=== PATIENT | male | born 1970 | race Caucasian/White ===

== ENCOUNTER 2016-09-26 18:19 | Emergency (ER) | payer BC ==
[2016-09-26] MEDS ORDERED: ONDANSETRON HCL 4 MG/2 ML VIAL ONE (19:01)
[2016-09-26 19:02] LABS: BASOPHILS 0.3 % (0.0-2.0); HEMATOCRIT 43.8 % (42.0-54.0); HEMOGLOBIN 15.6 g/dL (14.0-18.0); LYMPHOCYTES# 1.2 X 10^3uL (0.8-3.8); MEAN CELL VOLUME 87.5 fL (80.0-100.0); MEAN CORPUS. HGB CONCENTRATION 35.6 g/dL (32.0-36.0); MEAN CORPUSCULAR HEMOGLOBIN 31.1 pg (29.0-35.0); MEAN PLATELET VOLUME 8.6 fL (7.4-10.4); MONOCYTES 6.8 % (2.0-10.0); MONOCYTES# 0.6 X 10^3uL (0.2-1.0); NEUTROPHILS 78.9 % (54.0-75.0); NEUTROPHILS# 6.9 X 10^3uL (2.6-6.7); PLATELET COUNT 208 X 10^3uL (130-440); RED BLOOD COUNT 5.01 X 10^6uL (4.20-6.10); RED CELL DISTRIBUTION WIDTH 12.6 % (11.5-14.5); WHITE BLOOD COUNT 8.7 X 10^3uL (3.9-10.7)
[2016-09-26 19:12] LABS: A/G RATIO 1.1; ALBUMIN 4.1 g/dL (3.5-5.0); ALKALINE PHOSPHATASE 78 U/L (38-126); ALT 36 U/L (21-72); AST 27 U/L (17-59); BILIRUBIN, TOTAL 1.3 mg/dL (0.2-1.3); BLOOD UREA NITROGEN 18 mg/dL (9-20); CALCIUM 8.9 mg/dL (8.4-10.2); CHLORIDE 100 mmol/L (98-107); CREATININE 1.3 mg/dL (0.7-1.3); EST GLOMERULAR FILTRATION RATE > 60 mL/min; GLUCOSE 142 mg/dL (70-100); POTASSIUM 3.7 mmol/L (3.5-5.1); SODIUM 142 mmol/L (137-145); TOTAL PROTEIN 7.9 g/dL (6.3-8.2)
[2016-09-26] MEDS ORDERED: KETOROLAC TROMETHAMINE 30 MG/ML VIAL ONE (20:44)
[2016-09-26] MEDS ORDERED: FAMOTIDINE IN SALINE, ISO-OSM 50 ML IV ONE (20:44)
[2016-09-26] MEDS ORDERED: ONDANSETRON ODT PREPAC 4 MG TAB.RAPDIS PO ONE (21:19)
--- NOTE | 2016-09-26 21:28 | ER NURSING DOCUMENTATION ---
Nurse's Notes [facility] Name:Nita Carr Age:46 yrs Sex:Male :1970 Arrival Date:09/26/2016 Time:18:19 Bed4 Private MD: Diagnosis:Gastroenteritis vs. Food Poisoning;Dehydration Presentation: 09/26 18:21 Acuity: MOISES 3 tg 18:22 Presenting complaint: Patient states: Headache, Nausea and diarrhea since Tuesday. No tg blood or black tarriness. ABD pain in lower ABD. Transition of care: patient was not received from another setting of care. 18:22 Method Of Arrival: Private Vehicle tg Triage Assessment: 18:30 General: Appears uncomfortable, Behavior is cooperative. Pain: Complains of pain in tg Lower abd ("beltline"). Neuro: Level of Consciousness is awake, alert. Cardiovascular: Capillary refill < 3 seconds. Respiratory: Airway is patent Respiratory effort is even, unlabored. GI: Abdomen is obese, Stools are reported to be diarrhea. Reports diarrhea, nausea, Denies tolerance of food, tolerance of fluids, vomiting. Derm: Skin is pink, warm & dry. Historical: - Allergies: No known drug Allergies; - Home Meds: 1. Nexium Oral 2. Mobic oral 3. Zyrtec Oral 4. BP med - PMHx: HYPERTENSION; back pain; KIDNEY STONES; - PSHx: LITHOTRIPSY; ACL; - Tetanus: < 10 years. - Ebola Screening: : Patient negative for fever greater than or equal to 101.5 degrees Fahrenheit, and additional compatible Ebola Virus Disease symptoms. Patient denies exposure to infectious person. Patient denies travel to an Ebola-affected area in the 21 days before illness onset. No symptoms or risks identified at this time. . - Immunization history: Flu Vaccine >1 year. - Social history: Smoking status: Patient states was never smoker of tobacco. Screenin:48 Infectious Disease Risk Unable to Obtain. Abuse screen: Denies threats or abuse. Denies tg injuries from another. Nutritional screening: No deficits noted. Vital Signs: 18:26 BP 142 / 90; Pulse 120; Resp 22; Temp 99.2(O); Pulse Ox 92% ; Weight 122.92 kg (R); tg Height 5 ft. 10 in. (177.80 cm) (R); Pain 8/10; 20:48 BP 116 / 58; Pulse 96; Pulse Ox 96% on R/A; em1 21:26 BP 104 / 63; Pulse 92; Resp 18; Temp 99; Pulse Ox 96% on R/A; Pain 1/10; bw2 18:26 Body Mass Index 38.88 (122.92 kg, 177.80 cm) tg ED Course: 18:21 Patient arrived in ED. jt 18:21 Imtiaz Morrison RN is Primary Nurse. tg 18:21 Triage completed. tg 18:40 Ludwig Espinosa MD is Attending Physician. tl1 18:48 Arm band placed on Bed in low position Call Light in Reach Gowned HOB Elevated Side tg rails up x1. Family accompanied patient. 18:48 Valuables Remains with patient. tg 18:48 Inserted peripheral IV: 20 gauge in right antecubital area Missed attempts: 22 gauge X tg 1 in right hand. 18:49 Report given to JASBIR Ferrer. tg 19:04 Attending Physician role handed off by Ludwig Espinosa MD nj 19:04 Josh Barry MD is Attending Physician. sc Administered Medications: 18:54 Drug: NS 0.9% 1000 ml; Route: IV; Rate: bolus; Site: left femoral; tg 20:46 Follow up: Response: No adverse reaction; IV Status: Completed infusion bw2 18:54 Drug: Zofran 4 mg; Route: IVP; Infused Over: 2 mins; Site: right antecubital; tg 19:14 Follow up: Response: No adverse reaction; Nausea is decreased bw2 20:21 Drug: NS 0.9% 1000 ml; Route: IV; Rate: bolus; Site: right antecubital; bw2 21:04 Follow up: IV Status: Completed infusion bw2 20:34 Drug: Pepcid 20 mg; Route: IVPB; Site: right antecubital; bw2 20:46 Follow up: Response: No adverse reaction; IV Status: Completed infusion bw2 20:35 Drug: Toradol 30 mg; Route: IVP; Site: right antecubital; bw2 20:46 Follow up: Response: No adverse reaction bw2 21:09 Drug: Zofran 1 tablet; Route: PO; bw2 21:28 Follow up: Response: Pharmacy closed - take home med pack bw2 Outcome: 21:02 Discharge ordered by MD. sc 21:26 Discharged to home ambulatory. bw2 21:26 Condition: good 21:26 Discharge instructions given to patient, Instructed on discharge instructions, Demonstrated understanding of instructions, Prescriptions given X 1. 21:28 Patient left the ED. bw2 Signatures: Imtiaz Morrison, RN RN tg Josh Barry MD MD sc [facility], [facility] em1 FranciscaLudwig muniz MD MD tl1 Zaira Flores Carissa bw2
--- NOTE | 2016-09-26 21:28 | ER PHYSICIAN DOCUMENTATION ---
Physician Documentation [facility] Name:Nita Carr Age:46 yrs Sex:Male :1970 Arrival Date:09/26/2016 Time:18:19 Bed4 Private MD: Josh Arroyo Disposition: 09/26/16 21:02 Discharged to Home/Self Care. Impression: Gastroenteritis vs. Food Poisoning, Dehydration. - Condition is Good. - Discharge Instructions: DEHYDRATION (6y-Adult), DIARRHEA VOMIT Viral 6yAdult - GASTROENTERITIS, Viral [6y-Adult]. - Prescriptions for Zofran 4 mg Oral Tablet - take 1 tablet by ORAL route every 12 hours .; 20 tablet. - Medical Reconciliation form form. - Follow up: Private Physician; When: 2 - 3 days; Reason: Recheck today's complaints, Continuance of care. - Problem is new. - Symptoms have improved. HPI: 09/26 18:40 This 46 yrs old Male presents to ER via Private Vehicle with complaints of tl1 Diarrhea. 18:40 The patient presents to the emergency department with nausea, that is mild, with tl1 diarrhea, 8 times since the onset of symptoms. Onset: The symptom(s)/episode began/occurred suddenly, last night. Possible causes: bad food exposure, flare up of bowel problem, irritable bowel disease. The symptoms are aggravated by nothing. The symptoms are alleviated by nothing. Associated signs and symptoms: Pertinent positives: abdominal pain, fever, nausea, Pertinent negatives: anorexia, constipation, diarrhea, dysuria, GI bleeding, hematuria, vomiting. Severity of symptoms: At their worst the symptoms were moderate in the emergency department the symptoms are unchanged. He was well until 2 nights ago when he developed mild rhinorhea and sinus congestion which has now resolved. Last evening he noted the gradual onset of a progressively severe global headache over the top of his head with some nausea. Early this AM he developed watery diarrhea, subjective fever and chill, nausea and malaise. No blood. No vomiting. No rash.. Historical: - Allergies: No known drug Allergies; - Home Meds: 1. Nexium Oral 2. Mobic oral 3. Zyrtec Oral 4. BP med - PMHx: HYPERTENSION; back pain; KIDNEY STONES; - PSHx: LITHOTRIPSY; ACL; - Tetanus: < 10 years. - Ebola Screening: : Patient negative for fever greater than or equal to 101.5 degrees Fahrenheit, and additional compatible Ebola Virus Disease symptoms. Patient denies exposure to infectious person. Patient denies travel to an Ebola-affected area in the 21 days before illness onset. No symptoms or risks identified at this time. . - Immunization history: Flu Vaccine >1 year. - Social history: Smoking status: Patient states was never smoker of tobacco. ROS: 18:52 Abdomen/GI: Positive for abdominal pain, nausea, diarrhea, abdominal cramps, Negative tl1 for vomiting, constipation, hematemesis, black/tarry stool. 18:52 All other systems are negative. Exam: 18:53 Head/Face: Normocephalic, atraumatic. tl1 Eyes: Pupils equal round and reactive to light, extra-ocular motions intact. Lids and lashes normal. Conjunctiva and sclera are non-icteric and not injected. Cornea within normal limits. Periorbital areas with no swelling, redness, or edema. 18:53 ENT: Nares patent. No nasal discharge, no septal abnormalities noted. Tympanic tl1 membranes are normal and external auditory canals are clear. Oropharynx with no redness, swelling, or masses, exudates, or evidence of obstruction, uvula midline. Mucous membranes moist. 18:53 Constitutional: The patient appears in no acute distress, alert, awake, non-toxic, well developed, well hydrated, well groomed, well nourished. 18:53 Cardiovascular: Rhythm: regular, Pulses: no pulse deficits are appreciated, Heart sounds: normal, Edema: is not appreciated. 18:53 Respiratory: Respirations: normal, Breath sounds: are normal. 18:53 Abdomen/GI: Inspection: abdomen appears normal, Bowel sounds: diminished, Palpation: soft, mild abdominal tenderness, in the left lower quadrant, mass, is not appreciated, rebound tenderness, is not appreciated, voluntary guarding, is not appreciated. 18:53 Skin: Exam negative for acute changes. 18:53 Neuro: Exam negative for acute changes. Vital Signs: 18:26 BP 142 / 90; Pulse 120; Resp 22; Temp 99.2(O); Pulse Ox 92% ; Weight 122.92 kg (R); tg Height 5 ft. 10 in. (177.80 cm) (R); Pain 8/10; 20:48 BP 116 / 58; Pulse 96; Pulse Ox 96% on R/A; em1 21:26 BP 104 / 63; Pulse 92; Resp 18; Temp 99; Pulse Ox 96% on R/A; Pain 1/10; bw2 18:26 Body Mass Index 38.88 (122.92 kg, 177.80 cm) tg MDM: 18:33 Patient medically screened. tl1 21:03 Data reviewed: and as a result, I will continue to observe the patient, administer IV sc fluids. 09/26 19:07 Order name: CBC AUTO DIF, MDIF/RMOR IF IND; Complete Time: 20:20 EDMS 09/26 20:13 Interpretation: Normal. sc 09/26 19:13 Order name: COMPREHENSIVE METABOLIC PANEL; Complete Time: 20:20 EDMS 09/26 20:13 Interpretation: Normal. sc Dispensed Medications: 18:54 Drug: NS 0.9% 1000 ml; Route: IV; Rate: bolus; Site: left femoral; tg 20:46 Follow up: Response: No adverse reaction; IV Status: Completed infusion bw2 18:54 Drug: Zofran 4 mg; Route: IVP; Infused Over: 2 mins; Site: right antecubital; tg 19:14 Follow up: Response: No adverse reaction; Nausea is decreased bw2 20:21 Drug: NS 0.9% 1000 ml; Route: IV; Rate: bolus; Site: right antecubital; bw2 21:04 Follow up: IV Status: Completed infusion bw2 20:34 Drug: Pepcid 20 mg; Route: IVPB; Site: right antecubital; bw2 20:46 Follow up: Response: No adverse reaction; IV Status: Completed infusion bw2 20:35 Drug: Toradol 30 mg; Route: IVP; Site: right antecubital; bw2 20:46 Follow up: Response: No adverse reaction bw2 21:09 Drug: Zofran 1 tablet; Route: PO; bw2 21:28 Follow up: Response: Pharmacy closed - take home med pack bw2 Signatures: Imtiaz Morrison RN RN tg Josh Barry MD MD sc Leigh, Tom, MD MD 1 Carissa Molina bw2
[2016-09-27] MEDS ORDERED: ONDANSETRON HCL 4 MG/2 ML VIAL ONE (17:00)
[2016-09-27] MEDS ORDERED: KETOROLAC TROMETHAMINE 30 MG/ML VIAL ONE (18:44)
[2016-09-27] MEDS ORDERED: METOCLOPRAMIDE HCL 10 MG/2 ML VIAL ONE (19:55)
[2016-09-27] MEDS ORDERED: NORMAL SALINE 100 ML IV ONE (19:56)
== END 2016-09-26 21:28 | disposition home or self-care (01) ==
LOC: ER 18:19
DX: E86.0 Dehydration (principal); R19.7 Diarrhea, unspecified; R11.0 Nausea; R51 Headache; R10.32 Left lower quadrant pain; I10 Essential (primary) hypertension; Z79.899 Other long term (current) drug therapy
CPT/HCPCS: 80053; 85025; 96361; 96374; 96375; 99283; J1885; J2405; J2765; Q0169

== ENCOUNTER 2016-09-27 15:49 | Emergency (ER) | payer BC ==
[2016-09-27] MEDS ORDERED: ONDANSETRON HCL 4 MG/2 ML VIAL ONE (17:00)
[2016-09-27] MEDS ORDERED: NORMAL SALINE IV ONE (17:00)
[2016-09-27] MEDS ORDERED: METOCLOPRAMIDE HCL 10 MG/2 ML VIAL ONE (17:00)
[2016-09-27] MEDS ORDERED: KETOROLAC TROMETHAMINE 30 MG/ML VIAL ONE (17:00)
[2016-09-27 17:06] LABS: BASOPHILS 0.3 % (0.0-2.0); EOSINOPHILS 0.2 % (0.0-6.0); HEMATOCRIT 42.3 % (42.0-54.0); HEMOGLOBIN 14.6 g/dL (14.0-18.0); LYMPHOCYTES 19.1 % (20.0-40.0); LYMPHOCYTES# 1.4 X 10^3uL (0.8-3.8); MEAN CELL VOLUME 88.1 fL (80.0-100.0); MEAN CORPUS. HGB CONCENTRATION 34.6 g/dL (32.0-36.0); MEAN CORPUSCULAR HEMOGLOBIN 30.5 pg (29.0-35.0); MEAN PLATELET VOLUME 8.7 fL (7.4-10.4); MONOCYTES 9.2 % (2.0-10.0); MONOCYTES# 0.7 X 10^3uL (0.2-1.0); NEUTROPHILS 71.2 % (54.0-75.0); NEUTROPHILS# 5.3 X 10^3uL (2.6-6.7); PLATELET COUNT 204 X 10^3uL (130-440); RED CELL DISTRIBUTION WIDTH 12.5 % (11.5-14.5); WHITE BLOOD COUNT 7.4 X 10^3uL (3.9-10.7)
[2016-09-27 17:32] LABS: ALBUMIN 3.8 g/dL (3.5-5.0); ALKALINE PHOSPHATASE 64 U/L (38-126); ALT 41 U/L (21-72); AST 31 U/L (17-59); BILIRUBIN, DIRECT 0.4 mg/dL (0.0-0.4); BILIRUBIN, TOTAL 1.3 mg/dL (0.2-1.3); BLOOD UREA NITROGEN 13 mg/dL (9-20); CALCIUM 8.4 mg/dL (8.4-10.2); CHLORIDE 102 mmol/L (98-107); EST GLOMERULAR FILTRATION RATE > 60 mL/min; GLUCOSE 125 mg/dL (70-100); SODIUM 139 mmol/L (137-145); TOTAL PROTEIN 7.1 g/dL (6.3-8.2)
[2016-09-27 17:33] LABS: POTASSIUM 3.7 mmol/L (3.5-5.1)
--- NOTE | 2016-09-27 21:50 | ER PHYSICIAN DOCUMENTATION ---
Physician Documentation [facility] Name:Nita Carr Age:46 yrs Sex:Male :1970 Arrival Date:09/27/2016 Time:15:49 Bed4 Private MD: Josh Arroyo Disposition: 09/27/16 21:35 Discharged to Home/Self Care. Impression: Dehydration, Acute Headache, Diarrhea. - Condition is Good. - Discharge Instructions: DEHYDRATION (6y-Adult), DIARRHEA, Unk Cause (Adult) Report Pendg, HEADACHE, Unspecified. - Prescriptions for Phenergan 25 mg Oral tablet - take 0.5 tablet by ORAL route every 8 hours you can take a full tab if needed; 10 tablet. - Medical Reconciliation form form. - Follow up: Emergency Department; When: As needed; Reason: Continuance of care. - Problem is new. - Symptoms have improved. HPI: 09/27 18:57 This 46 yrs old Male presents to ER via Private Vehicle with complaints of sc Bloody Stools. 18:57 The patient presents to the emergency department with nausea, with vomiting, with sc diarrhea, without any complaints of abdominal pain. Onset: The symptom(s)/episode began/occurred 3 day(s) ago. Possible causes: unknown, bad food exposure, sick contacts, travel. Associated signs and symptoms: Pertinent positives: abdominal pain, diarrhea, nausea, vomiting. Severity of symptoms: At their worst the symptoms were severe. The patient has been recently seen at the [facility] Emergency Department, yesterday, for similar complaints. Historical: - Allergies: No known drug Allergies; - Home Meds: 1. Nexium Oral 2. Mobic oral 3. Zyrtec Oral 4. BP med - PMHx: HYPERTENSION; BACK PAIN; KIDNEY STONES; Gastroenteritis vs. Food Poisoning (September 26, 2016); Dehydration (September 26, 2016); - PSHx: LITHOTRIPSY; ACL; - Tetanus: unknown. - Ebola Screening: : Patient negative for fever greater than or equal to 101.5 degrees Fahrenheit, and additional compatible Ebola Virus Disease symptoms. Patient denies exposure to infectious person. Patient denies travel to an Ebola-affected area in the 21 days before illness onset. No symptoms or risks identified at this time. . - Immunization history: Flu Vaccine < 1 year. - Social history: Smoking status: Patient states was never smoker of tobacco. ROS: 18:58 Eyes: Negative for injury, pain, redness, and discharge. sc ENT: Negative for injury, pain, and discharge. Neck: Negative for injury, pain, and swelling. Cardiovascular: Negative for chest pain, palpitations, and edema. Respiratory: Negative for shortness of breath, cough, wheezing, and pleuritic chest pain. Back: Negative for injury and pain. MS/Extremity: Negative for injury and deformity. 18:58 Skin: Negative for injury, rash, and discoloration. sc 18:58 Constitutional: Positive for body aches, fatigue, malaise, poor PO intake. 18:58 Abdomen/GI: Positive for nausea, vomiting, diarrhea, now bloody mucous diarrhea. 18:58 Neuro: Positive for headache. Exam: Head/Face: Normocephalic, atraumatic. Eyes: Pupils equal round and reactive to light, extra-ocular motions intact. Lids and lashes normal. Conjunctiva and sclera are non-icteric and not injected. Cornea within normal limits. Periorbital areas with no swelling, redness, or edema. Neck: Trachea midline, no thyromegaly or masses palpated, and no cervical lymphadenopathy. Supple, full range of motion without nuchal rigidity, or vertebral point tenderness. No meningismus. 18:59 Chest/axilla: Normal chest wall appearance and motion. Nontender with no deformity. sc No lesions are appreciated. Back: No spinal tenderness. No costovertebral tenderness. Full range of motion. 18:59 MS/ Extremity: Pulses equal, no cyanosis. Neurovascular intact. Full, normal range of motion, negative Homans's, calves equal bilaterally. 18:59 Constitutional: The patient appears alert, awake, uncomfortable. 18:59 ENT: Mouth: Oral mucosa: dry. 18:59 Neck: Exam negative for acute changes. 18:59 Cardiovascular: Rate: normal, Rhythm: regular. 18:59 Abdomen/GI: Bowel sounds: hyperactive, Palpation: abdomen is soft and non-tender. 18:59 Skin: Turgor: is poor. Vital Signs: 15:54 Temp 100.4(TE); Weight 122.92 kg (R); Height 5 ft. 10 in. (177.80 cm) (R); Pain 7/10; tg 15:55 BP 119 / 81; Pulse 106; Resp 20; Pulse Ox 86% on R/A; tg 21:47 BP 147 / 77; Pulse 79; Resp 18; Temp 98; Pulse Ox 98% ; Pain 0/10; bw2 15:54 Body Mass Index 38.88 (122.92 kg, 177.80 cm) tg MDM: 15:52 Patient medically screened. sc 19:00 Differential diagnosis: viral gastroenteritis, gastroenteritis. Data reviewed: vital sc signs, nurses notes, lab test result(s), and as a result, I will continue to observe the patient, administer IV fluids. Counseling: I had a detailed discussion with the patient and/or guardian regarding: the historical points, exam findings, and any diagnostic results supporting the discharge/admit diagnosis. Transition of care: After a detail discussion of the patient's case, care is transferred to Torin Mota MD. 09/27 17:12 Order name: CBC AUTO DIF, MDIF/RMOR IF IND; Complete Time: 18:37 EDID 09/27 17:34 Order name: BASIC METABOLIC PANEL; Complete Time: 18:37 EDMS 09/27 17:34 Order name: HEPATIC PANEL; Complete Time: 18:37 EDMS 09/28 07:32 Order name: STOOL CULTURE PANEL EDID 09/28 09:33 Order name: FECAL LEUKS (LACTOFERRIN) EDID 09/27 16:44 Order name: Iv Saline Lock; Complete Time: 16:57 sc Dispensed Medications: 16:56 Drug: NS 0.9% 2000 ml; Route: IV; Rate: bolus; Site: left forearm; Delivery: [place] tg Tubing; 21:34 Follow up: IV Status: Completed infusion bw2 16:56 Drug: Zofran 4 mg; Route: IVP; Infused Over: 2 mins; Site: left forearm; tg 17:58 Follow up: Response: No adverse reaction tg 18:36 Drug: Toradol 30 mg; Route: IVP; Site: left forearm; lp 19:47 Follow up: Response: No adverse reaction bw2 19:46 Drug: Reglan 5 mg; Route: IVP; Site: left antecubital; bw2 20:36 Follow up: Response: No adverse reaction; Patient is sedated bw2 21:47 Drug: Phenergan 75 mg; Route: PO; bw2 21:47 Follow up: Response: Pharmacy closed - take home med pack bw2 Signatures: Imtiaz Morrison RN RN tg Charlette Roman RN RN lp Chew, Scott, MD MD sc Meyer, John, MD MD Jesse, Carissa bw2
--- NOTE | 2016-09-27 21:50 | ER NURSING DOCUMENTATION ---
Nurse's Notes [facility] Name:Nita Carr Age:46 yrs Sex:Male :1970 Arrival Date:09/27/2016 Time:15:49 Bed4 Private MD: Diagnosis:Dehydration;Acute Headache;Diarrhea Presentation: 09/27 15:54 Presenting complaint: Presenting complaint: Patient states: In ED yeseterday for tg diarrhea, nausea, headache. Today has similar symptoms, and also noticed some blood in his stool which was otherwise musus-y. Transition of care: patient was not received from another setting of care. 15:54 Acuity: MOISES 3 tg 15:54 Method Of Arrival: Private Vehicle tg Triage Assessment: 16:39 General: Appears uncomfortable, Behavior is cooperative, pleasant. Pain: Complains of tg pain in headache, lower ABD. 16:40 Cardiovascular: Capillary refill < 3 seconds. Respiratory: Respiratory effort is even, tg unlabored. GI: Reports lower abdominal pain, diarrhea. Derm: Skin is pink, warm & dry. Musculoskeletal: Historical: - Allergies: No known drug Allergies; - Home Meds: 1. Nexium Oral 2. Mobic oral 3. Zyrtec Oral 4. BP med - PMHx: HYPERTENSION; BACK PAIN; KIDNEY STONES; Gastroenteritis vs. Food Poisoning (September 26, 2016); Dehydration (September 26, 2016); - PSHx: LITHOTRIPSY; ACL; - Tetanus: unknown. - Ebola Screening: : Patient negative for fever greater than or equal to 101.5 degrees Fahrenheit, and additional compatible Ebola Virus Disease symptoms. Patient denies exposure to infectious person. Patient denies travel to an Ebola-affected area in the 21 days before illness onset. No symptoms or risks identified at this time. . - Immunization history: Flu Vaccine < 1 year. - Social history: Smoking status: Patient states was never smoker of tobacco. Screenin:42 Infectious Disease Risk Unable to Obtain. Nutritional screening: No deficits noted. tg 21:49 Abuse screen: Denies threats or abuse. Denies injuries from another. bw2 Assessment: 18:29 Reassessment: No changes from previously documented assessment. Patient states symptoms tg have not improved. Headache. Vital Signs: 15:54 Temp 100.4(TE); Weight 122.92 kg (R); Height 5 ft. 10 in. (177.80 cm) (R); Pain 7/10; tg 15:55 BP 119 / 81; Pulse 106; Resp 20; Pulse Ox 86% on R/A; tg 21:47 BP 147 / 77; Pulse 79; Resp 18; Temp 98; Pulse Ox 98% ; Pain 0/10; bw2 15:54 Body Mass Index 38.88 (122.92 kg, 177.80 cm) tg ED Course: 15:51 Patient arrived in ED. cj 15:52 Josh Barry MD is Attending Physician. sc 15:53 Imtiaz Morrison, JASBIR is Primary Nurse. tg 15:54 Triage completed. tg 16:30 Inserted peripheral IV: 22 gauge in left forearm and blood collected. tg 16:41 Valuables Remains with patient. tg 20:37 medication interventions have not been effective for pt. 15L non re breather applied bw2 for headache. Administered Medications: 16:56 Drug: NS 0.9% 2000 ml; Route: IV; Rate: bolus; Site: left forearm; Delivery: [place] tg Tubing; 21:34 Follow up: IV Status: Completed infusion bw2 16:56 Drug: Zofran 4 mg; Route: IVP; Infused Over: 2 mins; Site: left forearm; tg 17:58 Follow up: Response: No adverse reaction tg 18:36 Drug: Toradol 30 mg; Route: IVP; Site: left forearm; lp 19:47 Follow up: Response: No adverse reaction bw2 19:46 Drug: Reglan 5 mg; Route: IVP; Site: left antecubital; bw2 20:36 Follow up: Response: No adverse reaction; Patient is sedated bw2 21:47 Drug: Phenergan 75 mg; Route: PO; bw2 21:47 Follow up: Response: Pharmacy closed - take home med pack bw2 Outcome: 21:35 Discharge ordered by . rosanne 21:47 Discharged to home ambulatory. bw2 21:47 Condition: good 21:47 Discharge Assessment: Patient awake, alert and oriented x 3. No cognitive and/or functional deficits noted. Patient verbalized understanding of disposition instructions. 21:47 Discharge instructions given to patient, significant other, Instructed on discharge instructions, medication usage, Demonstrated understanding of instructions, medications. 21:49 Patient left the ED. bw2 09/28 15:38 Discharge F/U Call: Unable to reach: left voicemail: [email or web address] Signatures: Imtiaz Morrison RN RN tg Charlette Roman RN RN lp Chew, Scott, MD MD sc Meyer, John, MD MD jm Kruger, Meg, JASBIR RN mk2 Kellie Zambrano, [facility]
== END 2016-09-27 21:50 | disposition home or self-care (01) ==
LOC: ER 15:49
DX: E86.0 Dehydration (principal); R51 Headache; A09 Infectious gastroenteritis and colitis, unspecified; B96.89 Other specified bacterial agents as the cause of diseases classified elsewhere; R11.2 Nausea with vomiting, unspecified; M79.1 Myalgia; R53.83 Other fatigue; R53.81 Other malaise; I10 Essential (primary) hypertension; Z79.899 Other long term (current) drug therapy
CPT/HCPCS: 80048; 80076; 83630; 85025; 87077; 87186; 87188; 87899; 96361; 96374; 96375; 99283; J1885; J2405; J2765; J7030; Q0169